=== PATIENT | male | born 1955 | race African-American/Black ===

== ENCOUNTER 2017-01-18 05:22 | Inpatient (IN) | payer OTHER ==
--- NOTE | ~2017-01-18 | PN ---
Unit #: [id number] #: [id number] Patient: JOSÉ SWEENEY [id number] [facility] [address] [place] [address] [id number] MR#: [id number] NAME: JOSÉ SWEENEY ROOM: [facility] Age: 61 Sex: M Admission Date: 01/18/2017 : 1955 Attending Physician: Juan Dunn M.D. Admitting Physician: Juan Dunn M.D. Primary Care Physician: Destinee PEREZ PROGRESS NOTES DATE OF SERVICE 01/21/2017 DISCUSSION José continues to be chronically psychotic with rambling and bizarre speech patterns, occasional bizarre behaviors, and little interaction with others. He is compliant with medication with no adverse side effects. ASSESSMENT Schizophrenia paranoid type. PLAN Continue current treatment plan. Dictated by... Kelley David/emerson TD: 01/22/2017 03:57 JOB #: [id number] CHRIS PROGRESS NOTES Page 1 of 1 X Juan Dunn MD PROGRESS NOTE
--- NOTE | ~2017-01-18 | PN ---
Unit #: [id number] #: [id number] Patient: JOSÉ SWEENEY [id number] [facility] [address] [place] [address] [id number] MR#: [id number] NAME: JOSÉ SWEENEY ROOM: 16 Age: 61 Sex: M Admission Date: 01/18/2017 : 1955 Attending Physician: Juan Dunn M.D. Admitting Physician: Juan Dunn M.D. Primary Care Physician: Destinee PEREZ PROGRESS NOTES DATE 01/19/2017 DISCUSSION José is agitated on the unit this morning, dressed neatly but in a rather bizarre fashion. He is rambling in his speech and ignores my attempts to engage him in an interview, preferring to make mildly suggestive sexual remarks to female peers and hospital personnel. He is somewhat agitated and occasionally suddenly darts in his room, slamming the door behind him. He appears alert but oriented to location and person only with poor memory and concentration and acute, rambling psychosis. ASSESSMENT Schizophrenia paranoid type. PLAN José will be transferred to [address] [place] [address] where the milieu is safer for him and will be placed on VTS and ERNA precautions. We will continue with his current medication plan. Dictated by... Juan Dunn M.D. ENRICO/lina TD: 01/20/2017 08:37 JOB #: [id number] CHRIS PROGRESS NOTES Page 1 of 1 X Juan Dunn MD X PROGRESS NOTE
--- NOTE | ~2017-01-18 | HP ---
Unit #: [id number] #: [id number] Patient: JOSÉ SWEENEY [id number] [place] [address] [id number] I MR#: [id number] NAME: JOSÉ SWEENEY ROOM: [facility] Age: 61 Sex: M Admission Date: 01/18/2017 : 1955 Attending Physician: Juan Dunn M.D. Admitting Physician: Juan Dunn M.D. Primary Care Physician: Destinee Wills HISTORY AND PHYSICAL HISTORY OF PRESENT ILLNESS José is a 61 year old admitted to [address] [place] [address] with psychotic behavior. He has had other admissions to this facility. He is a poor historian so his history is taken from his chart. PAST MEDICAL HISTORY Nothing reported. PAST SURGICAL HISTORY Nothing reported. ALLERGIES No known drug allergies. SOCIAL HISTORY Unknown. REVIEW OF SYSTEMS He answers no questions appropriately. There were no reports of nausea, vomiting or diarrhea. He has had no cough or increased temperature. CURRENT MEDICATIONS 1. Depakote 500 mg b.i.d. 2. Risperdal 2 mg b.i.d. 3. Thorazine 50 mg q. 4 hours p.r.n. 4. Milk of Magnesia p.r.n. 5. Maalox p.r.n. 6. Tylenol p.r.n. PHYSICAL EXAMINATION GENERAL: Alert, well-nourished, no apparent distress. VITAL SIGNS: Blood pressure 150/108, heart rate 80, respirations 16, temperature 98.6. WEIGHT: 125. HEIGHT: 5 feet 9 inches. SKIN: Unable to assess. HEENT: Unable to assess. NECK: Unable to assess. HEART: Rate and rhythm is regular. LUNGS: Unable to assess. ABDOMEN: Soft, nontender. : Not done. EXTREMITIES: Moves all without focal deficit. Gait normal. Unit #: [id number] #: [id number] Patient: JOSÉ SWEENEY NEUROLOGICAL: Unable to assess. IMPRESSION 1. Psychiatric admission. 2. High blood pressure on admission. RECOMMENDATIONS PSYCHIATRIC: Per psychiatrist. MEDICAL: 1. See no contraindications to participate in facility's activities. 2. Start Norvasc 5 mg 1 p.o. daily. MEDICAL PROGNOSIS Good. MEDICAL CONDITION Stable. Dictated by... Roxann Plascencia P.A.-C. for Kelley Mcclellan/etta TD: 01/18/2017 21:39 JOB #: [id number] HISTORY AND PHYSICAL Page 1 of 1 X oRxann Plascencia X HISTORY AND PHYSICAL
--- NOTE | ~2017-01-18 | PA ---
Unit #: [id number] #: [id number] Patient: JOSÉ GUERRA [id number] [facility] [address] [place] [address] [id number] MR#: [id number] NAME: JOSÉ GUERRA ROOM: [facility] Age: 61 Sex: M Admission Date: 01/18/2017 : 1955 Date of Assessment: 01/18/2017 Attending Physician: Juan Dunn M.D. Admitting Physician: Juan Dunn M.D. Primary Care Physician: Destinee Wills PSYCHIATRIC ASSESSMENT DATE OF ASSESSMENT 01/18/2017. INFORMANTS The patient, partially reliable; OLOP, reliable. CHIEF COMPLAINT Psychosis. HISTORY OF PRESENT ILLNESS José Guerra is a 61-year-old man who presented in an extremely psychotic and disorganized state. He was agitated with rambling speech and quite a labile mood. He was unable to provide reliable contract for safety and admitted that he had been off his medications. He was admitted for stabilization. PAST PSYCHIATRIC HISTORY Mr. Guerra was last here in 2012 and had an extended stay with several episodes of agitation and aggression toward others. He is currently a client at [facility], where he receives haloperidol decanoate injections and last received one in the last week of 11/2016. He is also supposed to be on Depakote, but has been noncompliant. FAMILY PSYCHIATRIC HISTORY None reported. SOCIAL HISTORY The patient is erratically homeless and is on long-term disability for schizophrenia. Please see his psychosocial assessment for other details. PAST MEDICAL HISTORY No chronic medical problems. MEDICATIONS Please see MAR. ALLERGIES No known medication allergies. SUBSTANCE USE HISTORY There is no reported recent use of chemicals. MENTAL STATUS EXAMINATION Unit #: [id number] #: [id number] Patient: JOSÉ GUERRA presented as a mildly disheveled man who appeared older than his stated age. He was sleepy and uncooperative with the examination, having just received an injectable medication due to agitation. His speech was reported as rambling and disorganized and he had physical aggression upon arrival to the unit. I will attempt a further mental status examination when the patient is able to participate. ASSETS AND LIABILITIES The patient is in general good health and has a current relationship with [facility]. Liabilities include apparent noncompliance with medication. ADMITTING DIAGNOSES AXIS I: Schizophrenia, paranoid type, F20.0. AXIS II: No diagnosis. AXIS III: None acute. AXIS IV: AXIS V: PSYCHIATRIC PLAN The patient was admitted and placed on psychosis and aggression precautions. Thorazine was provided as a p.r.n. calming agent and we will restart his Depakote and other medications at previous doses. We will administer Haldol Decanoate when it becomes due in about a week. He will enroll in reality-based groups and activities. TREATMENT GOALS Resolution of psychosis, stabilization of mood and behavior, and improvement in insight. DISCHARGE PLANNING [facility]. ESTIMATED LENGTH OF STAY 5 days. Dictated by... Juan Dunn M.D. ENRICO/bertha TD: 01/18/2017 21:41 JOB #: [id number] PSYCHIATRIC ASSESSMENT Page 1 of 1 X Juan Dunn MD X PSYCHIATRIC ASSESSMENT
--- NOTE | ~2017-01-18 | PN ---
Unit #: [id number] #: [id number] Patient: JOSÉ SWEENEY [id number] [facility] [address] [place] [address] [id number] I MR#: [id number] NAME: JOSÉ SWEENEY ROOM: [facility] Age: 61 Sex: M Admission Date: 01/18/2017 : 1955 Attending Physician: Juan Dunn M.D. Admitting Physician: Juan Dunn M.D. Primary Care Physician: Destinee PEREZ PROGRESS NOTES DATE 01/23/2017 DISCUSSION José continues to be compliant with medications and appears to be approaching a baseline level of disorganized psychosis. He mumbles constantly under his breath and occasionally makes bizarre gestures at staff and peers. He is alert and fully oriented. His memory and concentration are only fair. His thought processes are rambling and psychotic. ASSESSMENT Schizophrenia paranoid type. PLAN Continue current treatment plan. Dictated by... Kelley David/jorge a TD: 01/25/2017 08:23 JOB #: [id number] CHRIS PROGRESS NOTES Page 1 of 1 X Juan Dunn MD X PROGRESS NOTE
--- NOTE | ~2017-01-18 | PN ---
Unit #: [id number] #: [id number] Patient: JOSÉ SWEENEY [id number] [facility] [address] [place] [address] [id number] I MR#: [id number] NAME: JOSÉ SWEENEY ROOM: [facility] Age: 61 Sex: M Admission Date: 01/18/2017 : 1955 Attending Physician: Juan Dunn M.D. Admitting Physician: Juan Dunn M.D. Primary Care Physician: Destinee PEREZ PROGRESS NOTES DATE 01/22/2017 DISCUSSION José is calmer today, although he continues to mumble actively to himself and appears to be actively responding to internal stimuli. He is alert and oriented to person, location, partially to situation and partially to time. His memory and concentration are only fair, and his thought processes continue to be rambling and psychotic. ASSESSMENT Schizophrenia paranoid type. PLAN Continue current treatment plan. Dictated by... Kelley David/lina TD: 01/23/2017 07:47 JOB #: [id number] CHRIS PROGRESS NOTES Page 1 of 1 X Juan Dunn MD X PROGRESS NOTE
--- NOTE | ~2017-01-18 | PN ---
Unit #: [id number] #: [id number] Patient: JOSÉ SWEENEY [id number] [facility] [address] [place] [address] [id number] I MR#: [id number] NAME: JOSÉ SWEENEY ROOM: 16 Age: 61 Sex: M Admission Date: 01/18/2017 : 1955 Attending Physician: Juan Dunn M.D. Admitting Physician: Juan Dunn M.D. Primary Care Physician: Destinee PEREZ PROGRESS NOTES DATE OF SERVICE 01/20/2017 DISCUSSION José continues to be actively an acutely psychotic. His speech is rambling, very hard to interrupt, and generally nonsensical he occasionally engages in bizarre behaviors such as "casting hexes" on certain staff members or been mildly intrusive with female peers. He has not been sexually inappropriate and is on sexual acting out precautions. He is alert and oriented to person and location only with poor memory concentration and extreme psychosis. ASSESSMENT Schizophrenia paranoid type. PLAN Continue current treatment plan. Dictated by... Juan Dunn M.D. ENRICO/emerson TD: 01/22/2017 00:55 JOB #: [id number] CHRIS PROGRESS NOTES Page 1 of 1 X Juan Dunn MD PROGRESS NOTE
--- NOTE | ~2017-01-18 | DS ---
Unit #: [id number] #: [id number] Patient: JOSÉ SWEENEY [id number] [facility] [address] [place] [address] [id number] I MR#: [id number] NAME: JOSÉ SWEENEY ROOM: [facility] Age: 62 Sex: M Admission Date: 01/18/2017 : 1955 Discharge Date: 01/30/2017 Attending Physician: Juan Dunn M.D. Primary Care Physician: Destinee Wills DISCHARGE SUMMARY REASON FOR ADMISSION José is a 61-year-old man, who presented extremely psychotic and disorganized state. He was unable to provide reliable history or contract for safety and was admitted for stabilization. DIAGNOSTIC STUDIES LABORATORY RESULTS: Please see hospital chart. HOSPITAL COURSE Tawanda was readmitted and placed on suicide precautions. Thorazine was used for temporary calming and Haldol Decanoate was readministered. He had an episode of making suggestive and inappropriate sexual remarks to peers and staff and demonstrated disorganized behavior. His psychotic state gradually improved, although he continued to be concrete and somewhat rambling, which appears to be his baseline level of behavior. On the date of discharge, he was achieved maximum benefit from hospitalization and was discharged in stable condition. DISCHARGE DIAGNOSES AXIS I: Schizophrenia, paranoid type. AXIS II: No diagnosis. AXIS III: None acute. AXIS IV: AXIS V: DISCHARGE INSTRUCTIONS Follow up with [facility] for long-term care. DISCHARGE MEDICATIONS Depakote 500 mg b.i.d. for mood stability; Risperdal 3 mg b.i.d. for psychosis; Haldol Decanoate 200 mg IM every 30 days, the next due on 02/25/2017. CONDITION AT DISCHARGE Fair. PROGNOSIS Fair. DIET AND ACTIVITY Ad salomón. Unit #: [id number] #: [id number] Patient: JOSÉ SWEENEY Dictated by... Juan Dunn M.D. [facility]/bertha TD: 04/11/2017 12:17 JOB #: [id number] DISCHARGE SUMMARY Page 1 of 1 X Juan Dunn MD X DISCHARGE SUMMARY
[2017-01-18 12:47] LABS: URINE APPEARANCE CLEAR; URINE BILIRUBIN NEG (NEG); URINE BLOOD NEG (NEG); URINE COLOR YELLOW; URINE GLUCOSE NEG (NEG); URINE KETONE TRACE (NEG); URINE LEUKOCYTE ESTERASE NEG (NEG); URINE NITRATE NEG (NEG); URINE PH 6.5 (5-8); URINE PROTEIN NEG (NEG)
[2017-01-18 13:09] LABS: AMPHETAMINE NEG (NEG); BARBITURATES NEG (NEG); BENZODIAZEPINES NEG (NEG); COCAINE NEG (NEG); MARIJUANA NEG (NEG); OPIATES NEG (NEG); TRICYCLIC ANTIDEPRESSANTS NEG (NEG); U METHADONE NEG (NEG)
== END 2017-01-30 18:46 | disposition home or self-care (01) | DRG 885 ==
LOC: P2L 05:22 → P1S 01-19 13:02
PROVIDERS: Psychiatry & Neurology Psychiatry
DX: F20.0 Paranoid schizophrenia (principal)
CPT/HCPCS: 80307; 81003